=== PATIENT | female | born 1960 | race Caucasian/White ===

== ENCOUNTER 2021-10-13 00:57 | Day surgery (SDC) | payer BC, SELFPAY ==
[2021-09-23 10:49] VITALS: BMI 29.2
[2021-10-13 11:25] VITALS: BP 151/65; PULSE 77; RESP 18; TEMP 36.8; O2SAT 100
[2021-10-13] MEDS: LACTATED RINGERS 1,000 ML 150 ML IV CONT (11:40)
--- NOTE | 2021-10-13 12:02 | PM.HPGS ---
History of Present Illness History of Present Illness Consent: Risks, benefits, and alternatives have been discussed and questions answered. Patient agrees to proceed with procedure. Chief complaint: rectal ca, hx of colon polyps Narrative: Jessica Combs is a 60 year old female referred for colon cancer screening. She has a history of polyps. Review of Systems Review of Systems: All systems reviewed & are unremarkable except as noted in HPI and below PMFSH Social History Social History Smoking packs per day: 1 Smoking cigarettes per day: 20.0 Years smoked: 49 Smoking pack-years: 49.00 Smoking status: Current every day smoker Tobacco type: cigarettes Substance use: never Substance use type: does not use Living arrangements: alone Spiritual care concerns: No Meds Home Medications and Allergies Home Medications Medication Instructions Recorded Confirmed Type ergocalciferol (vitamin D2) 1,250 50,000 unit PO WEEKLY 09/23/21 09/23/21 History mcg (50,000 unit) capsule rosuvastatin 10 mg tablet 10 mg PO DAILY 09/23/21 09/23/21 History Allergies Allergy/AdvReac Type Severity Reaction Status Date / Time No Known Allergies Allergy Verified 10/13/21 11:24 Vital Signs Vital Signs - 24 hr 10/13/21 11:25 Temperature 36.8 C Pulse Rate 77 Respiratory Rate 18 Blood Pressure 151/65 H Pulse Oximetry 100 Oxygen Delivery Room Air Exam Resp: Auscultation: clear to auscultation bilaterally Cardio: Rate: regular rate Rhythm: regular rhythm GI: GI Palp: Yes Soft to palpation and No Tenderness to palpation present (GI) Assessment and Plan Assessment and plan (1) Colon cancer screening: Code(s): Z12.11 - Encounter for screening for malignant neoplasm of colon Status: Acute Assessment and Plan: Colonoscopy with possible biopsy or polypectomy or cautery or injection of substances.
--- NOTE | 2021-10-13 12:05 | P.PNAN_ITS ---
Anes - Initial Pre Proc Eval Procedure: Operation Date: 10/13/21 13:00 Proposed Procedures p Screening Colonoscopy - Manny Hernandez MD Date/Time: 10/13/21 12:05 Surgeon: Manny Hernandez MD Pre Op Diagnosis: rectal ca, hx of colon polyps Patient Data Age: 60 Gender: F Height: 1.68 m Weight: 79.9 kg Last Vital Signs Temp 98.2 F 10/13/21 11:25 Pulse 77 10/13/21 11:25 Resp 18 10/13/21 11:25 BP 151/65 H 10/13/21 11:25 Pulse Ox 100 10/13/21 11:25 O2 Del Method Room Air 10/13/21 11:25 Allergies Allergy/AdvReac Type Severity Reaction Status Date / Time No Known Allergies Allergy Verified 10/13/21 11:24 Home Medications Medication Instructions Recorded Confirmed Type ergocalciferol (vitamin D2) 1,250 50,000 unit PO WEEKLY 09/23/21 09/23/21 History mcg (50,000 unit) capsule rosuvastatin 10 mg tablet 10 mg PO DAILY 09/23/21 09/23/21 History Patient hx anesthesia problems: none Family hx anesthesia problems: none Results Review: All pre-operative results and documents have been reviewed as part of the pre- operative evaluation. [facility] Social History Social History Smoking packs per day: 1 Smoking cigarettes per day: 20.0 Years smoked: 49 Smoking pack-years: 49.00 Smoking status: Current every day smoker Tobacco type: cigarettes Substance use: never Substance use type: does not use Living arrangements: alone Spiritual care concerns: No Anes - Eval Final PreProcedure Day of Procedure 10/13/21 12:05 Patient weight: obese Heart: regular rate and rhythm Lungs: clear to auscultation Airway: Mallampati scale class II Neurological: alert and oriented Last oral intake: >/= 8 hours ASA classification: II Emergent: no Anesthetic plan: proceed Anesthesia type and monitoring: general GIVS and standard monitoring Results Review: All pre-operative results and documents have been reviewed as part of the pre- operative evaluation. Informed Consent: The patient's anesthetic plan and its attendant risks and benefits were discussed with the patient/family/POA. Questions were solicited and answers provided to the satisfaction of the patient/family/POA.
[2021-10-13 12:29] VITALS: BP 112/55; PULSE 74; RESP 20; O2SAT 98
[2021-10-13 12:39] VITALS: BP 124/71; PULSE 67; RESP 22; O2SAT 98
[2021-10-13 12:49] VITALS: BP 130/70; PULSE 69; RESP 24; O2SAT 98
== END 2021-10-13 13:16 | disposition home or self-care (01) ==
PROVIDERS: PCP Internal Medicine; Visit Provider Internal Medicine Gastroenterology
PROC: 0DJD8ZZ Inspection of Lower Intestinal Tract, Via Natural or Artificial Opening Endoscopic (ICD-10-PCS; CPT 45378; principal; 2021-10-13 13:00)
DX: Z12.11 Encounter for screening for malignant neoplasm of colon (principal); C20 Malignant neoplasm of rectum; Z86.010 Personal history of colon polyps; K57.30 Diverticulosis of large intestine without perforation or abscess without bleeding; K64.8 Other hemorrhoids; F17.210 Nicotine dependence, cigarettes, uncomplicated
CPT/HCPCS: 45378; J2704; J7120

== ENCOUNTER 2025-02-04 12:45 | Outpatient (CLI) | payer OTHER, SELFPAY ==
--- OUTSIDE RECORDS SUMMARY | 2000-12-08 04:30 | XMS_ITS | Continuity of Care Document ---
Author Organization [facility] Address [address] [place] [address] [address] [place] [address] Phone Care Team Providers Care Brand Recorder Name Role Phone Eve Barreto Unavailable Unavailable Advance Directives Directive Yes / No Effective Date File Name No Information Encounters Encounter Description Practice Location Reason(s) For Visit Diagnoses Date Provider Providers Copied on Encounter [facility], [address], [place], [place], [id number], [place] tel:[phone] [facility] No Information [address] Prado. [address] , [address], [place], [address], [place]. tel:[phone] Family History Family Member Type Diagnosis Age At Onset No Information Payers Payer name Insurance type Covered democrat ID Authoriza tion(s) No Information Social History Type Description Quantity Date Captured Comments Sex Female Smoking Status No Information Chief Complaint And Reason For Visit No Information Reason For Referral Reason For Referral No Information History Of Present Illness Encounter Date Complaint History Of Prese nt Illness No Information Functional Status Date Functional Assessmen t No Information Instructions Date Instruction Additional Infor mation No Information Assessments Type Assessment Date No Information Patient Care Teams Name Effective Dates (start - stop) Status Members No Information
--- OUTSIDE RECORDS SUMMARY | 2015-07-22 10:30 | XMS_ITS | Continuity of Care Document ---
Author Organization [facility] Address [address] [place] [address] Phone Care Team Providers Care Stroboscope Operator Name Role Phone Evelyn Flores MD Unavailable Unavailable Allergies, Adverse Reactions, Alerts Substance Reaction Status Criticality No Known Allergies Active No Inform ation Medications Medication Instructions Dosage Effective Dates (start - stop) Status Comments CRESTOR (unknown strength) Not Available - Active Procedures Procedure Date DISABILITY EXAMINATION Advance Directives Directive Yes / No Effective Date File Name No Information Encounters Encounter Description Practice Location Reason(s) For Visit Diagnoses Date Provider Providers Copied on Encounter DISABILITY EXAMINATION [facility], [address], [place], [address], [place] tel:[phone] [facility] JEAN PIERRE//RATE (chief complaint) Other closed extra-artic ular fracture of distal end of left radius, sequela 6 aSndra Rivas. [address] [place], [place], [id number] . tel: [phone] Family History Family Member Type Diagnosis Age At Onset Brother Problem (finding) Alive and well Payers Payer name Insurance type Covered libertarian ID Authoriza tion(s) No Information Social History Type Description Quantity Date Captured Comments Alcohol Use Details Unknown Caffeine Use Details Unknown Tobacco Use Status Cigarette smoker Smoking Status Current every day smoker Smoking Tobacco Use Details Cigarette: No Details Available Cigarette: No Details Available Sex Female Vital Signs Date / Time: Height Weight BMI Pulse Rate Blood Pressure Temperature Respiratory Rate Body Surface Area Head Circumference Head Circ. Percentile Wt./Kyle. Percentile BMI percentile Pulse Ox Inhaled Ox 4:52 PM 66.00 in 81.647 kg (180.00 lbs) 29.0 5 kg/m eter (2) 141/78 mm[Hg] Chief Complaint And Reason For Visit From encounter dated '07/22/2015 15:30'. [facility] JEAN PIERRE//RATE (chief complaint) Reason For Referral Reason For Referral No Information Plan Of Treatment Date Type Action Status Referral Ordered: RADEX WRST COMPL MINIMUM 3 VIEWS LT ordered History Of Present Illness Encounter Date Complaint History Of Prese nt Illness [facility] JEAN PIERRE//RATE Functional Status Date Functional Assessmen t No Information Instructions Date Instruction Additional Infor mation Elevate extremity above heart. R elated to Other closed extra- articular fracture of distal end of left radius, sequela Apply ice as tolerated. Related to Other closed extra-articular fracture of distal end of left radius, sequela Assessments Type Assessment Date assessment Other closed extra-a rticular fracture of distal end of left radius, sequela Patient Care Teams Name Effective Dates (start - stop) Status Members No Information
--- OUTSIDE RECORDS SUMMARY | 2015-12-02 | XMS_ITS | Encounter Summary ---
Author Organization [facility] Healthcare Address [address] [place] [address] Care Team Providers Care Lacquer Sprayer Name Role Phone Matt Feldman MD Primary Care Provider + [phone] Reason for Visit * Diagnostic Imaging (Routine) - Closed Specialty Diagnoses / Procedures Referred By Contac t Referred To Contact Procedures Breast Imaging Screening Outside Reference Jie Mcmanus NP Phone: tel: fax: Referral ID Status Reason Start Date Expiration Date Visits Re quested Visits Authorized [id number] Closed 05/09/2022 06/08/2023 1 1 Encounter Details Date Type Department Care Team (Late st Contact Info) Description 12/02/2015 Hospital Encounter [facility]) [address] [place] [id number] Social History Tobacco Use Types Packs/Day Years Used Date Smoking Tobacco: Every Day Cigarettes Smokeless Tobacco: Never Alcohol Use Standard Drinks/Week Comments Yes 0 (1 standard drink = 0.6 oz pur e alcohol) Comments Unknown Sex and Gender Information Value Date Recorded Sex Assigned at Not on file Legal Sex Female 12:58 AM COMMUNITY LEADER Gender Identity Not on file Sexual Orientation Not on file documented as of this encounter Plan of Treatment Not on file documented as of this encounter Procedures Procedure Name Priority Date/Time Associated Diagnosis Comments BREAST IMAGING MG SCREENING OUTSIDE REFERENCE Routine 12/02/2015 12:00 AM CDT documented in this encounter Results * Breast Imaging Screening Outside Reference (12/02/2015 12:00 AM CDT) Impressions RAD_M[facility]MO_[facility] - 05/09/2022 3:21 PM COMMUNITY LEADER These images are for Reference purposes only and have not been reviewed by [facility] Radiology. There will be no report generated by a [facility] Radiologist. Narrative RAD_MAMMO_[facility] - 05/09/2022 3:21 PM COMMUNITY LEADER EXAMINATION: Images For Reference Purposes Only us Jie Mcmanus ONLINE CONTENT DEVELOPER IMG MAMMO PROCEDURES Fin al Result [facility] documented in this encounter Visit Diagnoses Not on filedocumented in this encounter Care Teams Lacquer Sprayer Relationship Specialty Start Date End Date Matt Feldman MD PCP - General 11/12/08 documented as of this encounter
--- OUTSIDE RECORDS SUMMARY | 2017-04-06 01:00 | XMS_ITS | Encounter Summary ---
Author Organization [facility] Healthcare Address [address] [place] [address] Care Team Providers Care Guitar Maker Name Role Phone Matt Feldman MD Primary Care Provider + [phone] Reason for Visit * Diagnostic Imaging (Routine) - Closed Specialty Diagnoses / Procedures Referred By Contac t Referred To Contact Procedures Breast Imaging Screening Outside Reference Jie Mcmanus NP Phone: tel: fax: Referral ID Status Reason Start Date Expiration Date Visits Re quested Visits Authorized [id number] Closed 05/09/2022 06/08/2023 1 1 Encounter Details Date Type Department Care Team (Late st Contact Info) Description 04/06/2017 Hospital Encounter [facility] ([facility]) [address] [place] [phone] Social History Tobacco Use Types Packs/Day Years Used Date Smoking Tobacco: Every Day Cigarettes Smokeless Tobacco: Never Alcohol Use Standard Drinks/Week Comments Yes 0 (1 standard drink = 0.6 oz pur e alcohol) Comments Unknown Sex and Gender Information Value Date Recorded Sex Assigned at Not on file Legal Sex Female 12:58 AM DOMESTIC HELPER Gender Identity Not on file Sexual Orientation Not on file documented as of this encounter Plan of Treatment Not on file documented as of this encounter Procedures Procedure Name Priority Date/Time Associated Diagnosis Comments BREAST IMAGING MG SCREENING OUTSIDE REFERENCE Routine 04/06/2017 12:00 AM DOMESTIC HELPER documented in this encounter Results * Breast Imaging Screening Outside Reference (04/06/2017 12:00 AM DOMESTIC HELPER) Impressions RAD_MAMMO_[facility] - 05/09/2022 3:21 PM DOMESTIC HELPER These images are for Reference purposes only and have not been reviewed by [facility]. There will be no report generated by a [facility] Radiologist. Narrative RAD_MAMMO_[facility] - 05/09/2022 3:21 PM DOMESTIC HELPER EXAMINATION: Images For Reference Purposes Only us Jie Mcmanus COMBAT INFORMATION CENTER OFFICER IMG MAMMO PROCEDURES Fin al Result [facility]_M[facility] documented in this encounter Visit Diagnoses Not on filedocumented in this encounter Care Teams Guitar Maker Relationship Specialty Start Date End Date Matt Feldman MD PCP - General 11/12/08 documented as of this encounter
--- OUTSIDE RECORDS SUMMARY | 2018-07-02 01:00 | XMS_ITS | Encounter Summary ---
Author Organization [facility] Healthcare Address [address] [place] [address] Care Team Providers Care 3D Technologist Name Role Phone Matt Feldman MD Primary Care Provider + [phone] Reason for Visit * Diagnostic Imaging (Routine) - Closed Specialty Diagnoses / Procedures Referred By Contac t Referred To Contact Procedures Breast Imaging Screening Outside Reference Jie Mcmanus NP Phone: tel: fax: Referral ID Status Reason Start Date Expiration Date Visits Re quested Visits Authorized [id number] Closed 05/09/2022 06/08/2023 1 1 Encounter Details Date Type Department Care Team (Late st Contact Info) Description 07/02/2018 Hospital Encounter [facility] ([facility]) [address] [place] [phone] Social History Tobacco Use Types Packs/Day Years Used Date Smoking Tobacco: Every Day Cigarettes Smokeless Tobacco: Never Alcohol Use Standard Drinks/Week Comments Yes 0 (1 standard drink = 0.6 oz pur e alcohol) Comments Unknown Sex and Gender Information Value Date Recorded Sex Assigned at Not on file Legal Sex Female 12:58 AM HVAC MAINTENANCE TECHNICIAN Gender Identity Not on file Sexual Orientation Not on file documented as of this encounter Plan of Treatment Not on file documented as of this encounter Procedures Procedure Name Priority Date/Time Associated Diagnosis Comments BREAST IMAGING MG SCREENING OUTSIDE REFERENCE Routine 07/02/2018 12:00 AM HVAC MAINTENANCE TECHNICIAN documented in this encounter Results * Breast Imaging Screening Outside Reference (07/02/2018 12:00 AM HVAC MAINTENANCE TECHNICIAN) Impressions RAD_MAMMO[facility] - 05/09/2022 3:19 PM HVAC MAINTENANCE TECHNICIAN These images are for Reference purposes only and have not been reviewed by [facility] Radiology. There will be no report generated by a [facility] Radiologist. Narrative RAD_MAMMO_[facility] - 05/09/2022 3:19 PM HVAC MAINTENANCE TECHNICIAN EXAMINATION: Images For Reference Purposes Only us Jie Mcmanus DIAGNOSTICS SALES DEVELOPER IMG MAMMO PROCEDURES Fin al Result [facility] documented in this encounter Visit Diagnoses Not on filedocumented in this encounter Care Teams 3D Technologist Relationship Specialty Start Date End Date Matt Feldman MD PCP - General 11/12/08 documented as of this encounter
--- OUTSIDE RECORDS SUMMARY | 2019-11-06 | XMS_ITS | Encounter Summary ---
Author Organization [facility] Healthcare Address [address] [place] [address] Care Team Providers Care Dairy Cattle Farm Manager Name Role Phone Matt Feldman MD Primary Care Provider + [phone] Reason for Visit * Diagnostic Imaging (Routine) - Closed Specialty Diagnoses / Procedures Referred By Contac t Referred To Contact Procedures Breast Imaging Screening Outside Reference Jie Mcmanus NP Phone: tel: fax: Referral ID Status Reason Start Date Expiration Date Visits Re quested Visits Authorized [id number] Closed 05/09/2022 06/08/2023 1 1 Encounter Details Date Type Department Care Team (Late st Contact Info) Description 11/06/2019 Hospital Encounter [facility]) [address] [place] [phone] Social History Tobacco Use Types Packs/Day Years Used Date Smoking Tobacco: Every Day Cigarettes Smokeless Tobacco: Never Alcohol Use Standard Drinks/Week Comments Yes 0 (1 standard drink = 0.6 oz pur e alcohol) Comments Unknown Sex and Gender Information Value Date Recorded Sex Assigned at Not on file Legal Sex Female 12:58 AM AUTO HEADLIGHT MECHANIC Gender Identity Not on file Sexual Orientation Not on file documented as of this encounter Plan of Treatment Not on file documented as of this encounter Procedures Procedure Name Priority Date/Time Associated Diagnosis Comments BREAST IMAGING MG SCREENING OUTSIDE REFERENCE Routine 11/06/2019 12:00 AM CDT documented in this encounter Results * Breast Imaging Screening Outside Reference (11/06/2019 12:00 AM CDT) Impressions RAD[facility]MAMMO[facility] - 05/09/2022 3:20 PM AUTO HEADLIGHT MECHANIC These images are for Reference purposes only and have not been reviewed by [facility] Radiology. There will be no report generated by a [facility] Radiologist. Narrative RAD_MAMMO_[facility] - 05/09/2022 3:20 PM AUTO HEADLIGHT MECHANIC EXAMINATION: Images For Reference Purposes Only us Jie Mcmanus ANESTHESIOLOGIST IMG MAMMO PROCEDURES Fin al Result [facility] documented in this encounter Visit Diagnoses Not on filedocumented in this encounter Care Teams Dairy Cattle Farm Manager Relationship Specialty Start Date End Date Matt Feldman MD PCP - General 11/12/08 documented as of this encounter
--- OUTSIDE RECORDS SUMMARY | 2019-12-01 07:42 | XMS_ITS | Continuity of Care Document ---
Author Organization [facility] Address [address] [place] [address] Phone Care Team Providers Care Legal Internship Name Role Phone John Vasquez MD Unavailable Unavailable Advance Directives Directive Yes / No Effective Date File Name No Information Encounters Encounter Description Practice Location Reason(s) For Visit Diagnoses Date Provider Providers Copied on Encounter [facility] , [address], [place], [place], [id number], [place] tel:[phone] [employer] No Information Pedro Lopez. [address], [place], [place], [id number], [place]. tel:[phone] Family History Family Member Type Diagnosis Age At Onset No Information Payers Payer name Insurance type Covered republican ID Authoriza tion(s) No Information Social History [...]
--- NOTE | ~2025-02-04 | MM_ITS ---
EXAMINATION: MM screening srikanth BI w alexander HISTORY: Screening TECHNIQUE: Craniocaudal and mediolateral oblique 3-D tomosynthesis images were obtained and synthetic 2-D images were generated. CAD analysis was submitted and interpreted. COMPARISON: No prior mammogram is available for comparison at this institution. BREAST PARENCHYMAL COMPOSITION: Not dense: There are scattered areas of fibroglandular density. FINDINGS: There are nodular asymmetries in the lateral aspect of the right breast in the upper central aspect of the left breast. There are benign bilateral breast calcifications. IMPRESSION: 1. Bilateral breast asymmetries. 2. Comparison to prior outside mammograms recommended. BI-RADS Category 0: Incomplete: Needs additional imaging evaluation. Reviewed, dictated and finalized at location B.
--- OUTSIDE RECORDS SUMMARY | 2025-02-04 12:50 | XMS_ITS | Clinical Summary ---
Author Organization [facility] Address [address] [place] [phone] Care Team Providers Care Ruby Software Developer Name Role Phone Matt Feldman MD Primary Care Provider [phone] Allergies No known active allergies Medications ergocalciferol (VITAMIN D) 50,000 unit capsule ergocalciferol (vitamin D2) 1,250 mcg (50,000 unit) capsule Active rosuvastatin (CRESTOR) 10 mg tablet 2 Active Active Problems Problem Noted Date Diagnosed Date Abnormal mammogram 05/15/2022 Surgical History Surgery Date Site/Laterality Comments OTHER SURGICAL HISTORY 1998 Anal skin cancer: Hemorrhoidectomy / surgery OTHER SURGICAL HISTORY 2008 Excision of perianal skin lesion 08/13 OTHER SURGICAL HISTORY 2008 WLE post midline skin lesion, anal mapping bx 10/13 Medical History Medical History Date Comments Hyperlipidemia Hyperlipidemia Hx Other Medical Anal skin cance r Family History Medical History Relation Name Comments Diabetes Father 2 Diabetes mellit us; Heart disease Father 2 Heart disease; Stroke Father 2 Stroke; Prostate cancer Maternal Grandfather 2 Ca ncer, prostate; Stroke Mother 2 Stroke; Relation Name Status Comments Father 1 Alive Father 2 Maternal Grandfather 1 Alive Maternal Grandfather 2 Mother 1 Alive Mother 2 Social History Tobacco Use Types Packs/Day Years Used Date Smoking Tobacco: Every Day Cigarettes Smokeless Tobacco: Never Tobacco Cessation:Ready to Q uit: Not Asked; Counseling Given: Not Answered Alcohol Use Standard Drinks/Week Comments Yes 0 (1 standard drink = 0.6 oz pur e alcohol) Comments Unknown Sex and Gender Information Value Date Recorded Sex Assigned at Not on file 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 Gender Identity Not on file Sexual Orientation Not on file Obstetrics History Last Filed Vital Signs Vital Sign Reading Time Taken Comments Blood Pressure - - Pulse - - Temperature - - Respiratory Rate - - Oxygen Saturation - - Inhaled Oxygen Concentration - - Weight 81.6 kg (180 lb) 03/02/2023 10:08 AM CDT Height 167.6 cm (5' 6) 03/02/2023 10:08 AM CDT Body Mass Index 29.05 03/02/2023 10:08 AM CDT Plan of Treatment Health Maintenance Due Date Last Done Comments Cervical Cancer Screening 1959 Colon Cancer Screening-Colonoscopy 1959 Depression Screening 1959 Fall Risk Assessment 1959 Hepatitis C Screening 1959 Osteoporosis Screening-Bone Density Scan 1959 DTaP/Tdap/Td Vaccine (1 - Tdap) 12/10/1970 Hepatitis B Screening 12/10/1977 Pneumococcal vaccine 65+ (2 of 2 - PCV) 02/12/2020 02/11/2019, 02/04/2014 Breast Cancer Screening-Mammogram 03/02/2024 023 Well Visit 65+ 12/10/2024 Covid-19 Vaccine (5 - 2024-2 6 season) 2025 04/25/2022, 03/03/2021, 07/22/2020, Additional history exists Influenza Vaccine (#1) 2025 , 02/17/2019, 02/13/2018, Additional history exists Zoster Vaccine Completed 11/29/2024, 10/2021, 01/17/2022 Procedures Procedure Name Priority Date/Time Associated Diagnosis Comments DIAGNOSTIC MAMMOGRAM BILATERAL W BRAYAN Schedule Routine, Read Routine (OP Routine) 03/02/2023 10:49 AM CDT Abnormal mammogram from Last 3 Months or Most Recently Relevant to Health Maintenance Results * Diagnostic Mammogram Bilateral W Brayan (03/02/2023 10:49 AM CDT) Anatomical Region Laterality Modality Breast Bilateral Mammography 03/02/2023 11:4 3 AM CDT Addenda Addendum by Johana Quigley MD on 05/01/2023 9:26 AM LEAD BUSINESS SYSTEMS ANALYST The examination in question only included a right breast sonogram. Thus the examination and technique should be read as: EXAMINATION: BILATERAL DIGITAL DIAGNOSTIC MAMMOGRAM INCLUDING CAD AND BILATERAL DIGITAL BREAST TOMOSYNTHESIS; RIGHT BREAST SONOGRAM TECHNIQUE: Full field digital mammographic views of BOTH breasts were performed, including computer aided detection (CAD) and BILATERAL digital breast tomosynthesis (DBT). Directed ultrasound evaluation of the RIGHT breast was performed. Dictated by: Melvin Sullivan M.D. The radiology attending physician has personally reviewed this study, and had reviewed and/or edited this written report and agrees with it. Electronically signed by: Johana Quigley M.D. Impressions 03/02/2023 11:59 AM CDT 1. Stable right breast 10:00 mass demonstrating long-term two-year stability and is benign. 2. No suspicious mammographic finding in EITHER breast OVERALL FINAL ASSESSMENT: BI-RADS Category 2: Benign. RECOMMENDATION: Annual screening mammography is recommended. Dictated by: Melvin Sullivan M.D. The radiology attending physician has personally reviewed this study, and had reviewed and/or edited this written report and agrees with it. Electronically signed by: Johana Quigley M.D. Narrative 03/02/2023 11:59 AM CDT EXAMINATION: BILATERAL DIGITAL DIAGNOSTIC MAMMOGRAM INCLUDING CAD AND BILATERAL DIGITAL BREAST TOMOSYNTHESIS; BILATERAL BREAST SONOGRAM HISTORY: Completion of BI-RADS 3 workup COMPARISON: Multiple prior outside hospital mammograms, including 02/08/2022, 08/22/2021 and 02/02/2021. Reference also made to outside hospital ultrasound 02/08/2022 TECHNIQUE: Full field digital mammographic views of BOTH breasts were performed, including computer aided detection (CAD) and BILATERAL digital breast tomosynthesis (DBT). Directed ultrasound evaluation of BOTH breasts was performed. BREAST PARENCHYMAL COMPOSITION: There are scattered areas of fibroglandular density. MAMMOGRAM FINDINGS: There is no new suspicious finding in either breast. No significant change from prior exams. SONOGRAM FINDINGS: At the 10 o'clock position, 4 cm from the nipple is a 0.2 cm circumscribed, non-vascular isoechoic mass, essentially unchanged from immediate prior examination and decrease in size from 2020. Procedure Note Johana Quigley MD - 03/02/2023 EXAMINATION: BILATERAL DIGITAL DIAGNOSTIC MAMMOGRAM INCLUDING CAD AND BILATERAL DIGITAL BREAST TOMOSYNTHESIS; BILATERAL BREAST SONOGRAM HISTORY: Completion of BI-RADS 3 workup COMPARISON: Multiple prior outside hospital mammograms, including 02/08/2022, 08/22/2021 and 02/02/2021. Reference also made to outside hospital ultrasound 02/08/2022 TECHNIQUE: Full field digital mammographic views of BOTH breasts were performed, including computer aided detection (CAD) and BILATERAL digital breast tomosynthesis (DBT). Directed ultrasound evaluation of BOTH breasts was performed. BREAST PARENCHYMAL COMPOSITION: There are scattered areas of fibroglandular density. MAMMOGRAM FINDINGS: There is no new suspicious finding in either breast. No significant change from prior exams. SONOGRAM FINDINGS: At the 10 o'clock position, 4 cm from the nipple is a 0.2 cm circumscribed, non-vascular isoechoic mass, essentially unchanged from immediate prior examination and decrease in size from 2020. IMPRESSION: 1. Stable right breast 10:00 mass demonstrating long-term two-year stability and is benign. 2. No suspicious mammographic finding in EITHER breast OVERALL FINAL ASSESSMENT: BI-RADS Category 2: Benign. RECOMMENDATION: Annual screening mammography is recommended. Dictated by: Melvin Sullivan M.D. The radiology attending physician has personally reviewed this study, and had reviewed and/or edited this written report and agrees with it. Electronically signed by: Johana Quigley M.D. Jie Mcmanus NP IMG MAMMO PROCEDURES Guzman kevin Result - Final from Last 3 Months or Most Recently Relevant to Health Maintenance Insurance [employer] O[employer] Care Teams Ruby Software Developer Relationship Specialty Start Date End Date Matt Feldman MD PCP - General 11/12/08
== END 2025-02-04 12:46 | disposition home or self-care (01) ==
LOC: CHSIMG 12:47
PROVIDERS: PCP Internal Medicine; Visit Provider Internal Medicine
DX: Z12.31 Encounter for screening mammogram for malignant neoplasm of breast (principal); N64.89 Other specified disorders of breast
CPT/HCPCS: 77063; 77067

== ENCOUNTER 2025-04-13 10:19 | Outpatient (CLI) | payer OTHER, SELFPAY ==
--- NOTE | ~2025-04-13 | MM_ITS ---
EXAMINATION: Diagnostic bilateral mammography with tomography HISTORY: Additional imaging TECHNIQUE: Craniocaudal and mediolateral oblique 3-D tomosynthesis images were obtained and synthetic 2-D images were generated. CAD analysis was submitted and interpreted. COMPARISON: 2022. Note that these studies became available after the patient had received a recommendation for additional imaging. BREAST PARENCHYMAL COMPOSITION: Not Dense: There are scattered areas of fibroglandular FINDINGS: All the mammographic images, both those from the screening study and those from today's additional views, look unchanged from 2022. The appearance is considered benign. No suspicious masses are seen. There are no suspicious calcifications. No unexplained architectural distortion is seen. There are no skin or nipple abnormalities identified. There is no adenopathy seen on the images submitted. IMPRESSION: No mammographic evidence to suggest malignancy is seen. The patient may return to screening mammography as per ACR guidelines. BI-RADS 1 - Negative. Reviewed, dictated and finalized at location B. 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
== END 2025-04-13 10:20 | disposition home or self-care (01) ==
LOC: CHSIMG 10:23
PROVIDERS: PCP Internal Medicine
DX: R92.8 Other abnormal and inconclusive findings on diagnostic imaging of breast (principal)
CPT/HCPCS: 77062; 77066; G0279